=== PATIENT | female | born 1945 ===

== ENCOUNTER 2023-04-03 16:00 | Emergency (ER) | payer MEDICARE ==
[2023-04-03] MEDS ORDERED: Tetracaine HCl/PF 0.5% 4 ML Bottle EYEBOTH ONE (16:39)
[2023-04-03] MEDS ORDERED: Diphtheria,Pertussis(Acell),Tetanus Vaccine 0.5 ML Syringe IM ONE (18:03)
== END 2023-04-03 18:50 | disposition home or self-care (01) ==
LOC: MW.ED 16:00
DX: S05.01XA Injury of conjunctiva and corneal abrasion without foreign body, right eye, initial encounter (principal); Z88.0 Allergy status to penicillin; Z23 Encounter for immunization; W20.8XXA Other cause of strike by thrown, projected or falling object, initial encounter
CPT/HCPCS: 90471; 90715; 99283-25; J3490